=== PATIENT | male | born 1995 | race Two or more races ===

== ENCOUNTER 2017-08-29 14:18 | Emergency (ER) | payer OTHER ==
[~2017-08-29] VITALS: Ht 175.3 cm; Wt 74.8 kg
[2017-08-29 14:35] VITALS: BP 120/76
--- NOTE | 2017-08-29 14:47 | Emergency Room Report ---
History of Present Illness General Chief Complaint: General Complaint Source: Patient Present Illness HPI 22-year-old male patient presented ER complaining of stepping on a nail yesterday. Patient reports that he was at work and stepped on a nail, reports later in the day he again stepped on a nail on his right foot. Patient reports nail went through his shoe. Patient reports he does not know his vaccination status. Patient reports no pain with ambulation. Patient denies other acute symptoms at this time. Patient reports full range of motion of foot, no numbness or tingling. Patient denies redness swelling or erythema bottom of foot. Denies fever, chest pain, shortness breath, vomiting. Allergies: Coded Allergies: No Known Allergies (Unverified , 08/29/17) Patient History Past Medical History: see triage record Reviewed Nursing Documentation: PMH: Agreed; PSxH: Agreed Nursing Documentation-PMH Past Medical History: No Stated History Review of Systems All Other Systems: negative except mentioned in HPI Physical Exam Vital Signs Date Time Temp Pulse Resp B/P (MAP) Pulse Ox O2 Delivery O2 Flow Rate FiO2 08/29/17 14:27 98.3 60 18 120/76 96 Room Air 98.2 Sp02 EP Interpretation: reviewed, normal General Appearance: well appearing, no apparent distress, alert, GCS 15, non- toxic Head: normocephalic, atraumatic Respiratory: lungs clear, normal breath sounds, no rhonchi, no respiratory distress, no accessory muscle use, no wheezing, speaking full sentences Cardiovascular #1: regular rate, rhythm, no edema Musculoskeletal: back normal, digits/nails normal, gait/station normal, normal range of motion, non-tender, other - NVI Neurologic: alert, oriented x3, responsive, motor strength/tone normal, sensory intact Skin: other - left foot: 2 ~1mm puncture wounds, minimal erythema at site of puncture, no surrounding erythema, no edema, no TTP, no drainage Medical Decision Making PA Attestation Dr. James is my supervising Physician whom patient management has been discussed with. Diagnostic Impression: Primary Impression: Puncture wound of foot ER Course Pt. presents to the ED c/o stepping on nail. Ddx considered but are not limited to rash, cellulitis, abscess, puncture wound. Vital signs: are WNL, pt. is afebrile Ordered TDAP ER COURSE: PE: 2 small ~1 mm puncture wounds on the plantar aspect of right foot; one located on lateral border at midfoot, the other located distal to the heel and centrally. No signs of infection, no erythema, no edema, no drainage. patient denies pain with ambulation, no loss of range of motion. Low suspicion for infection, does not require treatment or surgical intervention at this time. Low suspicion for retained foreign body, does not require imaging at this time. Instructed patient will provide update on tetanus vaccination at this time. Will provide antibiotics for discharge, new or worsening of symptoms such as swelling, erythema, pus or blood draining, begin taking antibiotics, return to ER for further treatment. Follow-up with primary care provider to discuss need for antibiotic treatment. If unsure of who primary care provider is or do not have PCP, contact insurance and asked for name of nearby primary care provider to establish care. Keep feet clean, wear new shoes, clean socks. DISCHARGE: -Rx provided for Cipro At this time pt. is stable for d/c to home. Patient resting comfortably in no acute distress, nontoxic appearing. Will provide printed patient care instructions, and any necessary prescriptions. Care plan and follow up instructions have been discussed with the patient prior to discharge. Patient instructed to follow-up with primary care provider in 3 - 5 days and discuss further referral and treatment. Patient questions asked and answered. Patient reports understanding and agreement to treatment plan. ER precautions given. Patient instructed to return to ER immediately for any new or worsening of symptoms including but not limited to increasing SOB, persistent fever, intractable vomiting, calf pain. - Please note that this Emergency Department Report was dictated using [employer]field crop farming supervisor technology software, occasionally this can lead to erroneous entry secondary to interpretation by the dictation equipment. Last Vital Signs Date Time Temp Pulse Resp B/P (MAP) Pulse Ox O2 Delivery O2 Flow Rate FiO2 08/29/17 14:35 98.2 18 120/76 96 Room Air 98.2 08/29/17 14:27 60 Disposition: HOME, SELF-CARE Condition: Stable Scripts Ciprofloxacin Hcl* (CIPROFLOXACIN HCL*) 500 Mg Tablet 500 MG ORAL EVERY 12 HOURS, #14 TAB 0 Refills Prov: AmandaMartin P.A. 08/29/17 Patient Instructions: Puncture Wound, [id number] Additional Instructions: Followup with primary care provider in 3 -5 days. Contact insurance to establish primary care if needed. Take medications as directed. if symptoms worsen, erythema, edema, drainage, pain with ambulation. Patient questions asked and answered. Wear different shoes. Make sure to wash feet thoroughly, wear clean socks. ER precautions given, patient instructed to return to ER immediately for any new or worsening of symptoms. Martin Patel August 29, 2017 14:47
[2017-08-29] MEDS ORDERED: Tetanus/Diptheria/Pertussis Vaccine 0.5ml Syr IM ONE (15:00)
[2017-08-29] MEDS ORDERED: CIPROFLOXACIN500 M2 ORAL (15:04)
[2017-08-29 15:12] VITALS: BP 120/76
== END 2017-08-29 15:12 | disposition home or self-care (01) ==
LOC: EMR 14:44
DX: S91.331A Puncture wound without foreign body, right foot, initial encounter (principal); W22.8XXA Striking against or struck by other objects, initial encounter; Y92.89 Other specified places as the place of occurrence of the external cause; Z23 Encounter for immunization
CPT/HCPCS: 90471; 90715; 99283

== ENCOUNTER 2019-09-12 17:05 | Emergency (ER) | payer BC, OTHER ==
[~2019-09-12] VITALS: Ht 175.3 cm; Wt 68.0 kg
[~2019-09-12 17:05] MED LIST: CIPROFLOXACIN500 M2 ORAL
[2019-09-12] MEDS ORDERED: SILVER SULFADIA10 GM MC (17:13)
[2019-09-12] MEDS ORDERED: Bacitracin Oint UD TOPIC ONE (17:15)
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
[2019-09-12 17:20] VITALS: BP 137/92
[2019-09-12 17:22] VITALS: BP 137/92
--- NOTE | 2019-09-12 17:22 | NUR ---
ED Nurse Note: Pt cleared by health care Provider for discharge. DC instructions/prescription was given and explained to pt and verbalized understanding of teachings. All medical deviecs such as ID band removed. Pt is AAO x4, ambulatory and left with all personal belongings.
== END 2019-09-12 17:25 | disposition home or self-care (01) ==
LOC: EMR 17:15
DX: T23.202A Burn of second degree of left hand, unspecified site, initial encounter (principal); T31.0 Burns involving less than 10% of body surface; X08.8XXA Exposure to other specified smoke, fire and flames, initial encounter; Y93.89 Activity, other specified; Y92.9 Unspecified place or not applicable
CPT/HCPCS: 99282; 99283

== ENCOUNTER 2020-04-04 13:03 | Emergency (ER) | payer BC, MEDICAID ==
[~2020-04-04] VITALS: Ht 172.7 cm; Wt 72.6 kg
[~2020-04-04 13:03] MED LIST changes: +SILVER SULFADIA10 GM MC
--- NOTE | 2020-04-04 13:31 | Emergency Room Report ---
History of Present Illness General Chief Complaint: Skin Rash/Abscess Source: Patient Present Illness HPI 25-year-old male with no significant past medical history here complaining of an extremely pruritic rash both hands that started on webspaces x3 days. Reports that he started developing a rash after he was playing with his nephew who had the same rash 3 days ago. Denies pain, fever chills, anaphylaxis. Has not taken any medication for symptom relief. Allergies: Coded Allergies: No Known Allergies (Unverified , 08/29/17) COVID-19 Screening Contact w/high risk pt: No Recent Travel to affected area: No Experienced COVID-19 symptoms?: No COVID-19 Testing performed NUCLEAR CHEMISTRY TECHNICIAN: No Patient History Past Medical History: see triage record Past Surgical History: none Pertinent Family History: none Immunizations: UTD Reviewed Nursing Documentation: PMH: Agreed; PSxH: Agreed Nursing Documentation-PMH Past Medical History: No Stated History Review of Systems All Other Systems: negative except mentioned in HPI Physical Exam Vital Signs Date Time Temp Pulse Resp B/P (MAP) Pulse Ox O2 Delivery O2 Flow Rate FiO2 04/04/20 13:16 98.2 89 20 113/77 (89) 96 Room Air Sp02 EP Interpretation: reviewed, normal General Appearance: no apparent distress, alert, GCS 15, non-toxic Head: normocephalic, atraumatic Eyes: bilateral eye normal inspection, bilateral eye PERRL ENT: hearing grossly normal, normal pharynx, no angioedema, normal voice Neck: full range of motion, supple/symm/no masses Respiratory: lungs clear Cardiovascular #1: regular rate, rhythm Gastrointestinal: non-distended Musculoskeletal: back normal Neurologic: alert, motor strength/tone normal, oriented x3, sensory intact, responsive, speech normal Psychiatric: judgement/insight normal, memory normal, mood/affect normal, no suicidal/homicidal ideation Skin: rash - macules domonique spaces Lymphatic: no adenopathy Medical Decision Making PA Attestation All my diagnosis and treatment plans were reviewed ad discussed with my supervising physician Dr. Lozoya Diagnostic Impression: Primary Impression: Scabies ER Course 25-year-old male with no significant past medical history here complaining of an extremely pruritic rash both hands that started on webspaces x3 days. Reports that he started developing a rash after he was playing with his nephew who had the same rash 3 days ago. Denies pain, fever chills, anaphylaxis. Has not taken any medication for symptom relief. Ddx considered but are not limited to: Eczema, scabies, lice, Vital signs: are WNL, pt. is afebrile H&PE are most consistent with: Scabies ORDERS: Permethrin ED INTERVENTIONS: None required at this time. DISCHARGE: At this time pt. is stable for d/c to home. Will provide printed patient care instructions, and any necessary prescriptions. Care plan and follow up instructions have been discussed with the patient prior to discharge. Take medication as directed, wash all bedding and clothes, follow primary care provider, if worsening symptoms return to the emergency room Last Vital Signs Date Time Temp Pulse Resp B/P (MAP) Pulse Ox O2 Delivery O2 Flow Rate FiO2 04/04/20 13:16 98.2 89 20 113/77 (89) 96 Room Air Disposition: HOME, SELF-CARE Condition: Stable Scripts Prednisone* (PREDNISONE*) 20 Mg Tablet 40 MG ORAL DAILY for 5 Days, #10 TAB Prov: Reyes Mallory 04/04/20 Permethrin* (ELIMITE*) 60 Gm Cream..g. 1 APPLIC TOPIC ONCE, #60 GM 0 Refills Apply cream from head to toe; leave on for 8-14 hours before washing off with water; may reapply in 1 week if live mites appear. Prov: Reyes Mallory 04/04/20 Patient Instructions: Scabies, Pediatric Additional Instructions: Take medication as directed, follow-up with primary care provider, wash all bedding and clothes, if worsening symptoms return to the emergency room Reyes Mallory Apr 04, 2020 13:31
[2020-04-04] MEDS ORDERED: PREDNISONE20 MG ORAL (13:33)
[2020-04-04] MEDS ORDERED: PERMETHRIN60 GM TOPIC (13:33)
--- NOTE | 2020-04-04 13:38 | NUR ---
ED Nurse Note: Pt cleared by health care Provider for discharge. DC instructions/prescription was given and explained to pt and verbalized understanding of teachings. All medical devices such as ID band removed. Pt is AAO x4, ambulatory and left with all personal belongings. pt also given work note x 3 days off.
[2020-04-04 13:39] VITALS: BP 110/72
== END 2020-04-04 13:43 | disposition home or self-care (01) ==
LOC: EMR 13:30
DX: B86 Scabies (principal)
CPT/HCPCS: 99282